=== PATIENT | female | born 1945 | race Caucasian/White ===

== ENCOUNTER 2016-10-21 10:09 | Outpatient (CLI) | payer MEDICARE, OTHER | END 2016-10-21 10:10 | disposition home or self-care (01) | DX: Z12.31 Encounter for screening mammogram for malignant neoplasm of breast (principal) ==

== ENCOUNTER 2017-01-20 09:45 | Day surgery (SDC) | payer MEDICARE, OTHER ==
[2017-01-20] MEDS ORDERED: LACTATED RINGERS 1,000 ML IV ONE ×3 (10:14→12:19)
[2017-01-20] MEDS ORDERED: SCOPOLAMINE PATCH TOP ONE (11:14)
[2017-01-20] MEDS ORDERED: DEXAMETHASONE 4 MG/ML VIAL IVP ONE (11:21)
[2017-01-20] MEDS ORDERED: METOCLOPRAMIDE 10 MG/2 ML VIAL IVP ONE (11:21)
[2017-01-20] MEDS ORDERED: MIDAZOLAM 2 MG/2 ML VIAL IVP ONE (11:21)
[2017-01-20] MEDS ORDERED: ONDANSETRON 4 MG/2 ML VIAL IVP ONE (11:21)
[2017-01-20] MEDS ORDERED: LIDOCAINE-MPF 2% 5 ML VIAL IM ONE (11:21)
[2017-01-20] MEDS ORDERED: diphenhydrAMINE INJ 50 MG/ML VIAL IVP ONE (11:21)
[2017-01-20] MEDS ORDERED: KETAMINE 500 MG/10 ML VIAL IVP ONE (11:21)
[2017-01-20] MEDS ORDERED: KETOROLAC 30 MG/ML VIAL IVP ONE (11:21)
[2017-01-20] MEDS ORDERED: PROPOFOL 200 MG/20 ML VIAL IVP ONE (11:21)
[2017-01-20] MEDS ORDERED: LIDOCAINE 1%-EPI 1:100000 20 ML MDV SUBQ ONE (11:38)
[2017-01-20] MEDS ORDERED: IODINE/POTASSIUM IODIDE 8 ML SOLUTION TOP ONE (11:39)
== END 2017-01-20 09:46 | disposition home or self-care (01) ==
PROC: 0UBC7ZX Excision of Cervix, Via Natural or Artificial Opening, Diagnostic (ICD-10-PCS; principal; 2017-01-20 11:00)
DX: N87.1 Moderate cervical dysplasia (principal); Z22.4 Carrier of infections with a predominantly sexual mode of transmission; G89.29 Other chronic pain; M54.9 Dorsalgia, unspecified; Z87.891 Personal history of nicotine dependence
CPT/HCPCS: 57520; A9270; J3490; J7120

== ENCOUNTER 2017-03-10 08:18 | Outpatient (CLI) | payer MEDICARE, OTHER ==
[2017-03-10 08:43] LABS: BASOPHILS # (AUTO) 0.1 10^3/uL (0.0-0.1); BASOPHILS % (AUTO) 1.5 %; EOSINOPHILS # (AUTO) 0.3 10^3/uL (0.0-0.7); EOSINOPHILS % (AUTO) 3.5 %; HCT - HEMATOCRIT 39.4 % (37.0-47.0); HGB - HEMOGLOBIN 13.4 g/dL (12.0-16.0); LYMPHOCYTES # (AUTO) 3.1 10^3/uL (1.5-3.5); LYMPHOCYTES % (AUTO) 35.1 %; MEAN CORPUSCULAR HEMOGLOBIN 31.9 pg (27.0-31.0); MEAN CORPUSCULAR HGB CONC 34.1 g/dL (32.0-36.0); MEAN CORPUSCULAR VOLUME 93.6 fL (81.0-99.0); MONOCYTES # (AUTO) 0.6 10^3/uL (0.0-1.0); NEUTROPHILS # (AUTO) 4.6 10^3/uL (1.5-6.6); NEUTROPHILS % (AUTO) 52.9 %; RED BLOOD COUNT 4.21 10^6/uL (4.20-5.40); RED CELL DISTRIBUTION WIDTH 12.9 % (12.0-15.0); UNCORRECTED WHITE BLOOD COUNT 9.3 x10^3/uL; WHITE BLOOD COUNT 8.7 x10^3/uL (4.8-10.8)
[2017-03-10 09:01] LABS: ALBUMIN/GLOBULIN RATIO 1.8 (1.0-2.2); BILIRUBIN,TOTAL 1.2 mg/dL (0.2-1.0); CALCIUM 8.9 mg/dL (8.5-10.3); CREATININE 0.7 mg/dL (0.4-1.0); POTASSIUM 4.1 mmol/L (3.5-5.0); TOTAL PROTEIN 6.9 g/dL (6.7-8.2)
== END 2017-03-10 08:19 | disposition home or self-care (01) ==
LOC: LAB 08:18
PROVIDERS: ATTEND Physician Assistant Medical
DX: M54.9 Dorsalgia, unspecified (principal)
CPT/HCPCS: 36415; 80053; 84443; 85025; 86803

== ENCOUNTER 2017-09-29 09:26 | Outpatient (CLI) | payer MEDICARE, OTHER | END 2017-09-29 09:27 | disposition home or self-care (01) | LOC: RT 09:26 | PROVIDERS: ATTEND Obstetrics & Gynecology | DX: N87.1 Moderate cervical dysplasia (principal) | CPT/HCPCS: 93005 ==

== ENCOUNTER 2017-09-29 10:09 | Outpatient (CLI) | payer MEDICARE, OTHER ==
--- NOTE | 2017-09-29 11:33 | XRAY Preliminary Report ---
Exam: XR CHEST 2 VIEW PA/LAT IMPRESSION: Pulmonary hyperinflation consistent with chronic obstructive pulmonary disease. Small linear focus of atelectasis or scar in the left apex. Otherwise within normal limits for age. [facility] SITE ID: [id number]
--- NOTE | 2017-09-29 11:36 | XRAY Report ---
EXAM: CHEST RADIOGRAPHY 2 VIEWS EXAM DATE: 09/29/2017. CLINICAL HISTORY: Pre-op. Moderate cervical dysplasia. COMPARISON: None. TECHNIQUE: PA and lateral views. FINDINGS: Lungs/Pleura: Normal vasculature. The lungs are hyperinflated. Small focal linear scar or atelectasis in the left apex. The lungs are otherwise clear. No pleural fluid or pneumothorax. Mediastinum: Heart size is normal. Mild aortic tortuosity. Otherwise normal mediastinal contours. Bones: Degenerative changes of the spine. Mild levoconvex thoracal lumbar scoliosis. IMPRESSION: Pulmonary hyperinflation consistent with chronic obstructive pulmonary disease. Small linear focus of atelectasis or scar in the left apex. Otherwise within normal limits for age. [facility] Referring Provider Line: [phone] SITE ID: [id number]
== END 2017-09-29 10:10 | disposition home or self-care (01) ==
LOC: DI 10:09
PROVIDERS: ATTEND Obstetrics & Gynecology
DX: R03.0 Elevated blood-pressure reading, without diagnosis of hypertension (principal); N87.1 Moderate cervical dysplasia
CPT/HCPCS: 71020; 93005

== ENCOUNTER 2017-10-26 09:00 | Outpatient (CLI) | payer MEDICARE, OTHER | END 2017-10-26 09:01 | disposition home or self-care (01) | LOC: LAB 09:00 | PROVIDERS: ATTEND Obstetrics & Gynecology | DX: N87.9 Dysplasia of cervix uteri, unspecified (principal) | CPT/HCPCS: 36415; 80053; 85025; 86850; 86900; 86901 ==

== ENCOUNTER 2017-10-26 14:05 | Outpatient (CLI) | payer MEDICARE, OTHER ==
[2017-10-26 19:10] LABS: BASOPHILS # (AUTO) 0.1 10^3/uL (0.0-0.1); BASOPHILS % (AUTO) 1.1 %; EOSINOPHILS # (AUTO) 0.2 10^3/uL (0.0-0.7); EOSINOPHILS % (AUTO) 2.7 %; HGB - HEMOGLOBIN 13.3 g/dL (12.0-16.0); LYMPHOCYTES # (AUTO) 2.8 10^3/uL (1.5-3.5); LYMPHOCYTES % (AUTO) 37.2 %; MEAN CORPUSCULAR HEMOGLOBIN 31.2 pg (27.0-31.0); MEAN CORPUSCULAR HGB CONC 32.7 g/dL (32.0-36.0); MEAN CORPUSCULAR VOLUME 95.5 fL (81.0-99.0); MEAN PLATELET VOLUME 9.7 fL (7.9-10.8); MONOCYTES # (AUTO) 0.5 10^3/uL (0.0-1.0); MONOCYTES % (AUTO) 6.9 %; NEUTROPHILS % (AUTO) 52.1 %; PLT - PLATELET COUNT 268 10^3/uL (130-450); RED BLOOD COUNT 4.26 10^6/uL (4.20-5.40); RED CELL DISTRIBUTION WIDTH 12.9 % (12.0-15.0); WHITE BLOOD COUNT 7.6 x10^3/uL (4.8-10.8)
[2017-10-26 19:25] LABS: ALBUMIN 4.7 g/dL (3.2-5.5); ALBUMIN/GLOBULIN RATIO 1.9 (1.0-2.2); BILIRUBIN,TOTAL 0.7 mg/dL (0.2-1.0); CREATININE 0.8 mg/dL (0.4-1.0); TOTAL PROTEIN 7.2 g/dL (6.7-8.2)
== END 2017-10-26 14:06 | disposition home or self-care (01) ==
LOC: LAB.N 14:05
PROVIDERS: ATTEND Obstetrics & Gynecology
DX: N87.1 Moderate cervical dysplasia (principal)
CPT/HCPCS: 36415; 80053; 85025

== ENCOUNTER 2017-10-27 12:12 | Observation (INO) | payer MEDICARE, OTHER ==
--- NOTE | 2017-10-27 11:31 | PREOP HISTORY & PHYSICAL ---
DATE OF SERVICE: 10/27/2017 Physician: Mike Chow MD PREOP H&P 10/26/2017 FOR ANTICIPATED PROCEDURE OF 10/27/2017 IDENTIFICATION: A 72-year-old G1, P1, female reached menopause in her late 40s. CHIEF COMPLAINT: Longstanding history of persistent JOSY. Patient states that since her 30s she was diagnosed with JOSY 2; she has had a LEEP procedure, cone biopsy, and still has persistent JOSY 2. She has a history of cigarette smoking but stopped roughly 10 years ago. At this particular time, she is requesting a hysterectomy for final therapy. MEDICAL HISTORY: Patient denies a hypertensive, diabetic, or cardiac disease. She does have a history of JOSY 2. PAST SURGICAL HISTORY: Tonsillectomy and adenoidectomy, umbilical herniorrhaphy x2, tubal ligation, right hip surgery, as well as a cone biopsy. ALLERGIES: PCN itching. CURRENT MEDICATIONS: Patient denies; none. HABITS: Patient drinks alcohol occasionally, denies use of tobacco; does vape tetrahydrocannabinol on a regular basis. SOCIAL HISTORY: Patient is retired. 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 She is single at this time. FAMILY HISTORY: Positive for mother with lymphoma at 84; father with heart disease at 92. She denies any family history for ovarian, breast, or uterine cancer. REVIEW OF SYSTEMS: Patient wears glasses. She states she is in good health otherwise. Denies any problems with her heart, lungs, stomach, bowel, bladder, ureters. Does have a history of having arthritis in the right hip with hip surgery. PHYSICAL EXAMINATION GENERAL: Patient is a well-developed, well-nourished white female. She is in no acute distress at this time. VITAL SIGNS: Blood pressure 138/70. She has a BMI of 27.1. HEENT: Pupils are equal, round. Extraocular muscles are intact. Thyroid is not palpably enlarged. Mouth is clear. HEART: Regular rate and rhythm without murmurs. RESPIRATORY: Lung hubbard are clear without rales or wheezes. BACK: No spinal or CVA tenderness noted. ABDOMEN: Exam shows a small subumbilical vertical incision from previous tubal ligation. PELVIC: Her previous pelvic examination showed no evidence of any descent at this time; the uterus resides high in the pelvic cavity. There is some atrophy noted in the vulva, there are no lesions. Urethral meatus is also noted to be normal. There is good rugae present at this time, cervix shows no lesions of ulcerations, uterus is midline and is small, and the adnexa not palpably enlarged. IMPRESSION AND PLAN: Persistent cervical dysplasia, for which she has been treated with LEEP as well as biopsies. She has stopped smoking, and this has persisted over the last 40 years. She is requesting hysterectomy at this time. Risks and benefits have been explained to the patient including those, but not limited to bleeding, infection, injury to the pelvic organs which include the uterus, tubes, ovaries, bowel, bladder, and ureters. She is aware of the potential for DVT with PE, as well as postoperative adhesion which could cause pain and bowel obstruction. TD: 10/26/2017 18:39 EDWIN
[2017-10-27] MEDS ORDERED: ceFAZolin 2 GM/50 ML 2 GM/50 ML BAG IV ONE (12:22)
[2017-10-27 12:53] VITALS: BP 148/76
[2017-10-27] MEDS ORDERED: LACTATED RINGERS 1,000 ML IV ONE ×2 (13:06→17:00)
[2017-10-27] MEDS ORDERED: SCOPOLAMINE PATCH TOP ONE (13:34)
[2017-10-27] MEDS ORDERED: BUPIVACAINE 0.25%-EPI 1:200000 PF 30 ML VIAL SUBQ ONE (15:03)
[2017-10-27] MEDS ORDERED: METHYLENE BLUE 0.5% 50 MG/10 ML AMPULE IR ONE ×2 (16:45)
[2017-10-27] MEDS ORDERED: LIDOCAINE-MPF 2% 5 ML VIAL IM ONE (17:00)
[2017-10-27] MEDS ORDERED: GLYCOPYRROLATE 1 MG/5 ML VIAL IVP ONE (17:00)
[2017-10-27] MEDS ORDERED: ONDANSETRON 4 MG/2 ML VIAL IVP ONE (17:00)
[2017-10-27] MEDS ORDERED: DEXAMETHASONE 4 MG/ML VIAL IVP ONE (17:00)
[2017-10-27] MEDS ORDERED: fentaNYL 100 MCG/2 ML VIAL IVP ONE (17:00)
[2017-10-27] MEDS ORDERED: KETOROLAC 30 MG/ML VIAL IVP ONE (17:00)
[2017-10-27] MEDS ORDERED: NEOSTIGMINE 1 MG/1 ML 10 ML MDV IVP ONE (17:00)
[2017-10-27] MEDS ORDERED: ACETAMINOPHEN 1,000 MG/100 ML 100 ML IV ONE (17:00)
[2017-10-27] MEDS ORDERED: ROCURONIUM 50 MG/5 ML VIAL IVP ONE (17:00)
[2017-10-27] MEDS ORDERED: PROPOFOL 200 MG/20 ML VIAL IVP ONE (17:00)
[2017-10-27] MEDS ORDERED: ONDANSETRON 4 MG/2 ML VIAL ONE (17:47)
[2017-10-27] MEDS ORDERED: METOCLOPRAMIDE 10 MG/2 ML VIAL ONE (18:07)
--- NOTE | 2017-10-27 18:27 | OPERATIVE REPORT ---
DATE OF SERVICE: 10/27/2017 Physician: Mike Chow MD DATE OF PROCEDURE: 10/27/2017. PREOPERATIVE DIAGNOSIS: Persistent cervical intraepithelial neoplasia 2. POSTOPERATIVE DIAGNOSIS: Persistent cervical intraepithelial neoplasia 2. PROCEDURE: Total laparoscopic hysterectomy with bilateral salpingo- oophorectomy and cystoscopy. SURGEON: Mike Chow MD. CONSTRUCTION LINEMAN: Mike Mendoza MD. ANESTHESIOLOGIST: Truman Iniguez MD, with BLAS Haines. ANESTHESIA: General endotracheal. FINDINGS: Normal pelvis without evidence of any adhesions. The vaginal introitus was very tight, thus not allowing us to proceed with a vaginal approach with a final hysterectomy. At the time of the vaginal approach, Lugols solution was placed on the cervix and it appeared as though there was normal staining all the way up into the edge of the transition zone. The rest of the vaginal vault stained well also. ESTIMATED BLOOD LOSS: 100 mL DESCRIPTION OF PROCEDURE: Following adequate endotracheal anesthesia, the patient was placed on the table in Rafael stirrups. At this point, she was prepped and draped in the usual fashion. A timeout was performed, at which time, concerns were addressed. A speculum was placed in the vagina and the introitus was noted to be somewhat tight. The cervix was visualized, grasped with a single-tooth tenaculum. The cervix was then dilated up to size #8 dilator. It was sounded to 6.5 cm. A HUMI uterine manipulator was placed in the cervix. At this time, the balloon insufflated. Speculum was removed. The ladder operator's gloves were changed, and then a stab wound was made in the subumbilical region with #11 blade following local anesthesia with 0.25% Marcaine with epinephrine. A 5 mm trocar and sheath were passed without difficulty on a single pass. The abdominal cavity was insufflated with carbon dioxide. The inspection of the omentum showed no evidence of injury or bleeding. Two additional trocars were placed, both in the left and the right lower quadrants, following local anesthesia of 0.25% Marcaine, as well as the trocar being placed without difficulty. At this point, the pelvis was assessed. Photographs were taken. The right adnexa was grasped with a grasper, and following this, the infundibulopelvic ligament was doubly cauterized and then transected utilizing the LigaSure. This was carried down to the round ligament, which was likewise doubly cauterized and transected. The ureter was identified on the right hand side and noted to fall way out of the operative field. The broad ligament was cauterized, divided with LigaSure and then the anterior leaf was divided and carried across the lower uterine segment. The LigaSure was utilized to go down the right hand side with cautery and then transection. Care was taken to place this as close to the uterus as possible to decrease the risk of bleeding. This was carried all the way down to the external os of the cervix. The left hand side was treated in identical fashion. The infundibulopelvic ligament was cauterized, transected. The round ligament was cauterized and transected. The broad ligament was also cauterized and transected utilizing LigaSure. This was carried down to the internal os of the cervix. Then, the broad ligament was divided and then transected and cauterized. The bladder was both sharply and bluntly dissected free from the lower uterine segment, as well as the cervix. At this point, the uterine vessels on both sides were cauterized and there was evidence of good blanching of the uterus. It was decided at this time to proceed down from below. A speculum was placed in the vagina. The cervix visualized and then Lugol's solution was applied to identify evidence of any nonstaining areas. At this point, the introitus was noted to be very tight, and it was felt that to bring the uterus down and ligate the uterine vessels would be very , very difficult so it was decided to proceed on laparoscopically. This was done through the laparoscopic ports. VCare was placed under direct visualization from below and then a Harmonic scalpel was used anteriorly to open the anterior vagina. The incision was carried around the cervix on the right hand side with the Harmonic and on the left hand side, utilizing the LigaSure. The uterus was amputated from the apex of the vagina. At this point, it was brought through the incision. The speculum was placed. Cervix was grasped and then brought into the vagina to act as a tamponade to maintain pneumoperitoneum. The uterus was removed all the way , and then a glove was placed in the vagina with 3 moist sponges. The apex of the vagina was then closed utilizing Vlock suture. This was noted to have a good seal at this time without evidence of any leaking CO2. The abdominal cavity was inspected on both the left and right pelvic sidewalls, as well as the apex of the vagina. There was no evidence of any bleeding. There was evidence of good closure. At this point, the sponge was removed from the vagina, the Dowell was removed from the bladder and then a cystoscope was introduced. There was evidence of good flow of urine from both ureters. The incision was then closed using 4-0 Monocryl and then with Dermabond on the 2 lateral and then with a pressure dressing in the subumbilical incision. The patient tolerated the procedure well and was taken to Recovery in stable condition. Sponge and needle counts were correct. TD: 10/27/2017 19:26 EDWIN
[2017-10-27] MEDS ORDERED: ONDANSETRON 4 MG/2 ML VIAL IVP PRN (19:00)
[2017-10-27] MEDS ORDERED: METOCLOPRAMIDE 10 MG/2 ML VIAL IVP PRN (19:01)
[2017-10-27] MEDS ORDERED: KETOROLAC 15 MG/ML VIAL IVP PRN (19:33)
[2017-10-27] MEDS ORDERED: SODIUM CHLORIDE FLUSH 0.9% 10 ML SYRINGE ONE (19:58)
[2017-10-27] MEDS ORDERED: KETOROLAC 15 MG/ML VIAL IVP SCH (20:00)
[2017-10-27] MEDS ORDERED: ACETAMINOPHEN 1,000 MG/100 ML 100 ML IV SCH (20:00)
[2017-10-28] MEDS: ACETAMINOPHEN 1,000 MG/100 ML 100 ML IV SCH ×2 (00:12→07:50)
[2017-10-28] MEDS ORDERED: SODIUM CHLORIDE FLUSH 0.9% 10 ML SYRINGE ONE ×2 (00:33→00:59)
[2017-10-28] MEDS: LACTATED RINGERS 1,000 ML IV SCH ×2 (01:54→06:05)
== END 2017-10-28 09:40 | disposition home or self-care (01) ==
LOC: SDS 12:12 → UNDOADMOB 17:43 → OBS 17:43
PROVIDERS: ADMIT Obstetrics & Gynecology; ATTEND Obstetrics & Gynecology
PROC: 0UT24ZZ Resection of Bilateral Ovaries, Percutaneous Endoscopic Approach (ICD-10-PCS; 2017-10-27)
PROC: 0UT74ZZ Resection of Bilateral Fallopian Tubes, Percutaneous Endoscopic Approach (ICD-10-PCS; 2017-10-27)
PROC: 0UT94ZZ Resection of Uterus, Percutaneous Endoscopic Approach (ICD-10-PCS; principal; 2017-10-27 13:15)
DX: N87.1 Moderate cervical dysplasia (principal); D27.1 Benign neoplasm of left ovary; Z87.891 Personal history of nicotine dependence
CPT/HCPCS: 58571; 86850; 86900; 86901; J0131; J0690; J3490; J7120

== ENCOUNTER 2017-12-01 10:27 | Outpatient (CLI) | payer MEDICARE, OTHER ==
--- NOTE | 2017-12-02 18:10 | Mammography Report ---
DIGITAL SCREENING MAMMOGRAM: 12/01/2017 CLINICAL INDICATION: A 72-year-old for screening. COMPARISON: 10/2016, 09/2014, 08/2014, 07/2012. TECHNIQUE: Routine CC and MLO projections were obtained of the breasts. FINDINGS: The breasts again demonstrate heterogeneously dense fibroglandular parenchyma bilaterally. Coarse and punctate, typically benign calcifications are present. No suspicious masses, clustered microcalcifications, or regions of architectural distortion are identified. IMPRESSION: BENIGN FINDINGS. RECOMMENDATION: Routine annual screening unless otherwise clinically indicated. BIRADS category 2 benign findings. STANDARD QUALIFYING STATEMENTS 1. This examination was reviewed with the aid of Computed-Aided Detection (CAD). 2. A negative or benign imaging report should not delay biopsy if clinically suspicious findings are present. Consider surgical consultation if warranted. More than 5% of cancers are not identified by imaging. 3. Dense breasts may obscure an underlying neoplasm. TD: 12/02/2017 18:09
== END 2017-12-01 10:28 | disposition home or self-care (01) ==
LOC: DI 10:27
PROVIDERS: ATTEND Physician Assistant Medical
DX: Z12.31 Encounter for screening mammogram for malignant neoplasm of breast (principal)
CPT/HCPCS: 77067

== ENCOUNTER 2019-05-26 10:17 | Outpatient (CLI) | payer MEDICARE, OTHER ==
[2019-05-26 10:56] LABS: BASOPHILS # (AUTO) 0.1 10^3/uL (0.0-0.1); BASOPHILS % (AUTO) 0.7 %; EOSINOPHILS # (AUTO) 0.4 10^3/uL (0.0-0.7); EOSINOPHILS % (AUTO) 5.1 %; HGB - HEMOGLOBIN 13.5 g/dL (12.0-16.0); LYMPHOCYTES # (AUTO) 3.1 10^3/uL (1.5-3.5); LYMPHOCYTES % (AUTO) 41.5 %; MEAN CORPUSCULAR HEMOGLOBIN 30.7 pg (27.0-31.0); MEAN CORPUSCULAR HGB CONC 32.1 g/dL (32.0-36.0); MEAN CORPUSCULAR VOLUME 95.5 fL (81.0-99.0); MEAN PLATELET VOLUME 10.6 fL (7.9-10.8); MONOCYTES # (AUTO) 0.6 10^3/uL (0.0-1.0); MONOCYTES % (AUTO) 7.8 %; NEUTROPHILS # (AUTO) 3.3 10^3/uL (1.5-6.6); NEUTROPHILS % (AUTO) 44.8 %; PLT - PLATELET COUNT 266 10^3/uL (130-450); RED CELL DISTRIBUTION WIDTH 12.5 % (12.0-15.0); WHITE BLOOD COUNT 7.4 x10^3/uL (4.8-10.8)
[2019-05-26 11:20] LABS: ALBUMIN 4.6 g/dL (3.2-5.5); ALBUMIN/GLOBULIN RATIO 1.8 (1.0-2.2); ALKALINE PHOSPHATASE 81 IU/L (42-121); ALT ALANINE AMINOTRANSFERASE 17 IU/L (10-60); AST ASPARTATE AMINOTRANSFERASE 17 IU/L (10-42); BILIRUBIN,TOTAL 1.3 mg/dL (0.2-1.0); BUN - BLOOD UREA NITROGEN 21 mg/dL (6-20); CALCIUM 9.4 mg/dL (8.5-10.3); CARBON DIOXIDE - CO2 25 mmol/L (21-32); CHLORIDE 102 mmol/L (101-111); CHOL/HDL RATIO 3.5 (<4.4); CHOLESTEROL 226 mg/dL; CREATININE 0.7 mg/dL (0.4-1.0); GFR - MDRD 82 (>89); GLUCOSE 107 mg/dL (70-100); HDL CHOLESTEROL 64 mg/dL; LDL CHOLESTEROL,CALCULATED 124 mg/dL; LDL/HDL RATIO 1.9 (<4.4); SODIUM 139 mmol/L (135-145); TOTAL PROTEIN 7.2 g/dL (6.7-8.2); VLDL CHOLESTEROL 38 mg/dL
== END 2019-05-26 10:18 | disposition home or self-care (01) ==
LOC: LAB 10:17
PROVIDERS: ATTEND Nurse Practitioner
DX: Z00.00 Encounter for general adult medical examination without abnormal findings (principal)
CPT/HCPCS: 36415; 80053; 80061; 83721; 84443; 85025

== ENCOUNTER 2020-12-04 08:00 | Outpatient (CLI) | payer MEDICARE, OTHER ==
[2020-12-04 11:51] LABS: BASOPHILS # (AUTO) 0.1 10^3/uL (0.0-0.1); BASOPHILS % (AUTO) 0.8 %; EOSINOPHILS # (AUTO) 0.3 10^3/uL (0.0-0.7); EOSINOPHILS % (AUTO) 3.3 %; HCT - HEMATOCRIT 42.2 % (37.0-47.0); LYMPHOCYTES # (AUTO) 2.8 10^3/uL (1.5-3.5); LYMPHOCYTES % (AUTO) 36.5 %; MEAN CORPUSCULAR HEMOGLOBIN 31.8 pg (27.0-31.0); MEAN CORPUSCULAR HGB CONC 33.2 g/dL (32.0-36.0); MEAN CORPUSCULAR VOLUME 95.9 fL (81.0-99.0); MEAN PLATELET VOLUME 11.5 fL (7.9-10.8); MONOCYTES # (AUTO) 0.5 10^3/uL (0.0-1.0); MONOCYTES % (AUTO) 6.9 %; NEUTROPHILS # (AUTO) 4.1 10^3/uL (1.5-6.6); NEUTROPHILS % (AUTO) 52.4 %; PLT - PLATELET COUNT 275 10^3/uL (130-450); RED CELL DISTRIBUTION WIDTH 12.5 % (12.0-15.0); WHITE BLOOD COUNT 7.8 x10^3/uL (4.8-10.8)
[2020-12-04 13:30] LABS: THYROID STIMULATING HORMONE 1.96 uIU/mL (0.34-5.60)
[2020-12-04 13:43] LABS: ALBUMIN 4.4 g/dL (3.2-5.5); ALBUMIN/GLOBULIN RATIO 1.5 (1.0-2.2); ALKALINE PHOSPHATASE 88 IU/L (42-121); ALT ALANINE AMINOTRANSFERASE 22 IU/L (10-60); AST ASPARTATE AMINOTRANSFERASE 21 IU/L (10-42); BUN - BLOOD UREA NITROGEN 21 mg/dL (6-20); CALCIUM 9.2 mg/dL (8.5-10.3); CARBON DIOXIDE - CO2 24 mmol/L (21-32); CHLORIDE 103 mmol/L (101-111); CHOL/HDL RATIO 3.5 (<4.4); CHOLESTEROL 254 mg/dL; CREATININE 0.7 mg/dL (0.4-1.0); GFR - MDRD 82 (>89); GLUCOSE 102 mg/dL (70-100); HDL CHOLESTEROL 73 mg/dL; LDL CHOLESTEROL,CALCULATED 162 mg/dL; LDL/HDL RATIO 2.2 (<4.4); POTASSIUM 3.9 mmol/L (3.5-5.0); SODIUM 139 mmol/L (135-145); TOTAL PROTEIN 7.3 g/dL (6.7-8.2); TRIGLYCERIDES 95 mg/dL; VLDL CHOLESTEROL 19 mg/dL
== END 2020-12-04 23:59 | disposition home or self-care (01) ==
LOC: LAB.WCP 08:00
PROVIDERS: ATTEND Nurse Practitioner
DX: Z00.00 Encounter for general adult medical examination without abnormal findings (principal); R73.9 Hyperglycemia, unspecified; E78.00 Pure hypercholesterolemia, unspecified
CPT/HCPCS: 36415; 80053; 80061; 83721; 84443; 85025

== ENCOUNTER 2021-02-27 09:15 | Outpatient (CLI) | payer MEDICARE, OTHER ==
--- NOTE | 2021-02-28 09:12 | Mammography Report ---
BILATERAL DIGITAL SCREENING MAMMOGRAM 3D/2D: 02/27/2021 CLINICAL: Routine screening. Comparison is made to exams dated: 12/01/2017 mammogram, 10/21/2016 mammogram, 08/29/2014 mammogram, a nd 09/26/2014 mammogram - [facility]. The tissue of both breasts is extremely dens e, which lowers the sensitivity of mammography. No significant masses, calcifications, or other findings are seen in either breast. There has been no significant interval change. IMPRESSION: NEGATIVE There is no mammographic evidence of malignancy. A 1 year screening mammogram is recommended. This exam was interpreted at Station ID: [id number]. NOTE: For mammograms, a report in lay terms will be sent to the patient. Approximately 15% of breast malignancies will not be visualized mammographically. In the management of a palpable breast mass, a negative mammogram must not discourage biopsy of a clinically suspicious lesion. Electronically Signed By: Paco Curry M.D. slc/penrad:02/27/2021 12:23:21 ACR BI-RADS Category 1: Negative 3341F PARENCHYMAL PATTERN: (VD) - The breast(s) demonstrate(s) extremely dense parenchyma, limiting the sen sitivity of mammography. BI-RADS CATEGORY: (1) - 1 RECOMMENDATION: (ANNUAL) - Recommend routine annual screening mammography. [id number] 1 year screening LATERALITY: (B)
== END 2021-02-27 09:16 | disposition home or self-care (01) ==
LOC: DI 09:15
PROVIDERS: ATTEND Family Medicine
DX: Z12.31 Encounter for screening mammogram for malignant neoplasm of breast (principal)

== ENCOUNTER 2021-06-17 08:40 | Outpatient (CLI) | payer MEDICARE, OTHER | END 2021-06-17 08:41 | disposition home or self-care (01) | LOC: RT 08:40 | PROVIDERS: ATTEND Obstetrics & Gynecology Gynecologic Oncology | DX: Z01.810 Encounter for preprocedural cardiovascular examination (principal) | CPT/HCPCS: 93005 ==

== ENCOUNTER 2021-06-20 15:27 | Outpatient (CLI) | payer MEDICARE, OTHER | END 2021-06-20 15:28 | disposition home or self-care (01) | LOC: COV 15:27 | PROVIDERS: ATTEND Obstetrics & Gynecology Gynecologic Oncology | DX: Z01.812 Encounter for preprocedural laboratory examination (principal); Z20.822 Contact with and (suspected) exposure to COVID-19 ==

== ENCOUNTER 2022-07-10 13:55 | Outpatient (CLI) | payer MEDICARE, OTHER ==
--- NOTE | 2022-07-13 10:05 | Mammography Report ---
BILATERAL DIGITAL SCREENING MAMMOGRAM 3D/2D: 07/10/2022 CLINICAL: Routine screening. Comparison is made to exams dated: 02/27/2021 mammogram, 12/01/2017 mammogram, 10/21/2016 mammogram, mammogram, and 08/29/2014 mammogram - [facility]. Both breasts are heterogeneously dense, which may obscure small masses (category c / 51-75% glandula r tissue). No significant masses, calcifications, or other findings are seen in either breast. There has been no significant interval change. IMPRESSION: NEGATIVE There is no mammographic evidence of malignancy. A 1 year screening mammogram is recommended. Based on the Tyrer Cuzick model (a risk assessment model) the patients lifetime risk is 5.9% and her 10 year risk is 5.9%. According to the ACR, ACS, and NCCN guidelines, an annual breast MRI exam margi g with mammogram is recommended if the patients lifetime risk is 20% or greater. This exam was interpreted at Station ID: [id number]. NOTE: For mammograms, a report in lay terms will be sent to the patient. Approximately 15% of breast malignancies will not be visualized mammographically. In the management of a palpable breast mass, a negative mammogram must not discourage biopsy of a clinically suspicious lesion. Electronically Signed By: Susi pedersen/venancio:07/10/2022 17:28:52 ACR BI-RADS Category 1: Negative 3341F PARENCHYMAL PATTERN: (D) - The breast(s) demonstrate(s) heterogeneously dense fibroglandular yanira montiel. BI-RADS CATEGORY: (1) - 1 RECOMMENDATION: (ANNUAL) - Recommend routine annual screening mammography. [id number] 1 year screening LATERALITY: (B)
== END 2022-07-10 13:56 | disposition home or self-care (01) ==
LOC: DI 13:55
DX: Z12.31 Encounter for screening mammogram for malignant neoplasm of breast (principal)

== ENCOUNTER 2023-01-04 10:31 | Outpatient (CLI) | payer MEDICARE, OTHER ==
[2023-01-04 10:44] LABS: BASOPHILS # (AUTO) 0.1 10^3/uL (0.0-0.1); EOSINOPHILS # (AUTO) 0.3 10^3/uL (0.0-0.7); EOSINOPHILS % (AUTO) 3.1 %; HCT - HEMATOCRIT 42.9 % (37.0-47.0); HGB - HEMOGLOBIN 13.7 g/dL (12.0-16.0); LYMPHOCYTES # (AUTO) 3.4 10^3/uL (1.5-3.5); LYMPHOCYTES % (AUTO) 41.7 %; MEAN CORPUSCULAR HEMOGLOBIN 31.8 pg (27.0-31.0); MEAN CORPUSCULAR HGB CONC 31.9 g/dL (32.0-36.0); MEAN CORPUSCULAR VOLUME 99.5 fL (81.0-99.0); MEAN PLATELET VOLUME 10.2 fL (7.9-10.8); MONOCYTES # (AUTO) 0.5 10^3/uL (0.0-1.0); MONOCYTES % (AUTO) 6.6 %; NEUTROPHILS # (AUTO) 3.8 10^3/uL (1.5-6.6); NEUTROPHILS % (AUTO) 47.4 %; PLT - PLATELET COUNT 343 10^3/uL (130-450); RED BLOOD COUNT 4.31 10^6/uL (4.20-5.40); RED CELL DISTRIBUTION WIDTH 11.9 % (12.0-15.0)
[2023-01-04 11:02] LABS: ALBUMIN 4.3 g/dL (3.2-5.5); ALBUMIN/GLOBULIN RATIO 1.5 (1.0-2.2); ALKALINE PHOSPHATASE 102 IU/L (42-121); ALT ALANINE AMINOTRANSFERASE 20 IU/L (10-60); AST ASPARTATE AMINOTRANSFERASE 23 IU/L (10-42); BILIRUBIN,TOTAL 0.9 mg/dL (0.2-1.0); BUN - BLOOD UREA NITROGEN 15 mg/dL (6-20); CALCIUM 9.1 mg/dL (8.5-10.3); CARBON DIOXIDE - CO2 28 mmol/L (21-32); CHLORIDE 104 mmol/L (101-111); CHOL/HDL RATIO 2.8 (<4.4); CHOLESTEROL 226 mg/dL; CREATININE 0.7 mg/dL (0.4-1.0); GFR - MDRD 82 (>89); GLUCOSE 117 mg/dL (70-100); HDL CHOLESTEROL 81 mg/dL; LDL CHOLESTEROL,CALCULATED 127 mg/dL; LDL/HDL RATIO 1.6 (<4.4); POTASSIUM 4.6 mmol/L (3.5-5.0); SODIUM 139 mmol/L (135-145); TOTAL PROTEIN 7.2 g/dL (6.7-8.2); TRIGLYCERIDES 92 mg/dL; VLDL CHOLESTEROL 18 mg/dL
[2023-01-04 14:32] LABS: ESTIMATED AVERAGE GLUCOSE 108 mg/dL (70-100); HEMOGLOBIN A1c% 5.4 % (4.27-6.07)
== END 2023-01-04 10:32 | disposition home or self-care (01) ==
LOC: LAB 10:31
PROVIDERS: ATTEND Nurse Practitioner
DX: I10 Essential (primary) hypertension (principal); E78.00 Pure hypercholesterolemia, unspecified; R73.9 Hyperglycemia, unspecified
CPT/HCPCS: 36415; 80053; 80061; 83036; 83721; 85025